=== PATIENT | female | born 1940 | race Hispanic/Latino ===

== ENCOUNTER 2023-01-04 02:50 | Inpatient (IN) | payer MEDICAID, MEDICARE ==
[2023-01-04] MEDS ORDERED: Dextrose 50% Abboject 50 ML SYRINGE ONE (03:01)
[2023-01-04 03:39] LABS: Hemoglobin 8.1 g/dL (12.0-16.0); Mean Corpuscular Hemoglobin 29.6 pg (27.0-31.0); Mean Corpuscular Volume 95.3 fl (78.0-98.0); Mean Platelet Volume 9.2 fL (7.4-10.4); Platelet Count 142 10x3/uL (130-400); RBC Distribution Width 26.1 % (11.5-14.5); Red Blood Cell (RBC) Count 2.74 mill/uL (4.20-5.40); White Blood Cell (WBC) Count 21.1 10x3/uL (4.8-10.8)
[2023-01-04 03:45] LABS: Delete Auto Diff?? YES; Manual Diff?? YES
[2023-01-04 04:21] LABS: ALT (SGPT) 25 U/L (8-55); AST (SGOT) 46 U/L (5-34); Albumin 2.4 g/dL (3.4-4.8); Alkaline Phosphatase 129 U/L (40-110); Anion Gap 21 mmol/L (10-20); BUN (Urea Nitrogen) 36 mg/dL (9.8-20.1); Bilirubin, Total 0.5 mg/dL (0.2-1.2); Calc. Creatinine Clearance 0 mL/min (70-130); Carbon Dioxide 17 mmol/L (23-31); Chloride 97 mmol/L (98-107); Estimated GFR 10; Globulin 2.8 g/dL (2.4-3.5); Glucose 285 mg/dL (83-110); Lipase 7 U/L (8-78); Potassium 4.4 mmol/L (3.5-5.1); Protein, Total 5.2 g/dL (5.8-8.1); Sodium 131 mmol/L (136-145)
[2023-01-04 04:32] LABS: Calcium 6.8 mg/dL (7.8-10.44)
[2023-01-04 04:34] LABS: Anisocytosis MODERATE=16-30 cells HPF (0-5); Band 16 % (5-11); Burr Cells MODERATE= 6-15 cells HPF (0-1); Elliptocytes SLIGHT = 2-5 cells HPF (0-1); Hypochromia SLIGHT = 6-15 cells HPF (0-5); Large Platelets 0.8 % (0-5); Lymphocytes 4 % (21-51); Monocytes 6 % (0-10); Neutrophil 73 % (42-75); Nucleated RBC (Manual Ct) 1 % (0); Ovalocytes SLIGHT = 2-5 cells HPF (0-1); Platelet Adequacy Comment Platelets Normal; Polychromasia MODERATE = 3-4 cells HPF (0-2); Reactive Lymphocytes 1 % (0-10); Smudge Cells 8.1 %; Total Cell Count 123
[2023-01-04] MEDS ORDERED: NOREPINEPHRINE 8 MG/250 ML-D5W 250 ML ONE (05:09)
[2023-01-04] MEDS ORDERED: Vancomycin 1 GM/200 ML (FROZEN) BAG ONE (05:09)
[2023-01-04] MEDS ORDERED: Vancomycin 500 MG VIAL (PEDI) ONE (05:09)
[2023-01-04] MEDS ORDERED: Cefepime 2 GM VIAL ONE (05:09)
[2023-01-04] MEDS ORDERED: Ondansetron PF 4 MG/2 ML Vial IVP PRN (05:32)
[2023-01-04] MEDS ORDERED: Ipratropium/Albuterol 3 ML NEB EZPAP PRN (06:05)
[2023-01-04] MEDS ORDERED: Glucagon 1 MG/ML KIT IM PRN (06:07)
[2023-01-04] MEDS ORDERED: Heparin 10,000 UNITS/ 10 ML VIAL ONE (09:09)
[2023-01-04] MEDS ORDERED: Vancomycin Diaylsis Sliding Scale (Wt 71-99) FS SCH (10:00)
[2023-01-04] MEDS ORDERED: Vancomycin HCl 750 MG in Sodium Chloride 0.9% 250 ML 250 ML IVPB SCH ×2 (10:00→17:00)
[2023-01-04] MEDS: Heparin 5,000 UNITS/ML VIAL SC SCH ×2 (10:08→20:24)
[2023-01-04] MEDS ORDERED: Dextrose 5 % And 0.9 % NaCl 1,000 ML IV SCH (10:45)
[2023-01-04] MEDS: Albumin 25% 25 GM/100 ML BOT IVPB SCH ×2 (10:46→17:03)
[2023-01-04 11:40] LABS: HBSAg Index 0.16 S/CO (0-0.99); Hep B Surf Ag Non-Reactive S/CO (NonReactive); Hep C IgG Ab Non-Reactive S/CO (NonReactive); Hep C Index 0.15 S/CO (0-0.79)
[2023-01-04 11:46] LABS: HBSAB Concentration 47.47 mIU/mL; Hep B Surf AB Reactive (NonReactive)
[2023-01-04 12:53] LABS: Hep B Core Total Ab Reactive (NonReactive)
[2023-01-04 12:54] LABS: Hep B Core Total Index 1.47 S/CO (0-0.79)
[2023-01-04] MEDS ORDERED: NOREPINEPHRINE 8 MG/250 ML-D5W 250 ML IVPB SCH (14:45)
[2023-01-04] MEDS: Midodrine HCl 5 MG TAB PO SCH ×2 (15:13→20:24)
[2023-01-04 19:34] LABS: Anion Gap 17 mmol/L (10-20); BUN (Urea Nitrogen) 11 mg/dL (9.8-20.1); Calc. Creatinine Clearance 27 mL/min (70-130); Calcium 7.9 mg/dL (7.8-10.44); Carbon Dioxide 19 mmol/L (23-31); Chloride 100 mmol/L (98-107); Estimated GFR 29; Glucose 72 mg/dL (83-110); Potassium 4.1 mmol/L (3.5-5.1); Sodium 132 mmol/L (136-145)
[2023-01-04] MEDS ORDERED: Albumin 25% 25 GM/100 ML BOT IVPB SCH (19:45)
[2023-01-04] MEDS: Dextrose 5 % And 0.9 % NaCl 1,000 ML IV SCH (20:54)
[2023-01-05] MEDS: Albumin 25% 25 GM/100 ML BOT IVPB SCH ×3 (00:10→12:57)
[2023-01-05 04:28] LABS: #Monocytes 0.6 thou/uL (0.11-0.59); #Neutrophils 10.2 thou/uL (1.40-6.50); %Basophils 0.1 % (0.0-1.0); %Eosinophils 0.1 % (0.0-10.0); %Lymphocytes 8.8 % (21.0-51.0); %Monocytes 4.9 % (0.0-10.0); %Neutrophils 85.3 % (42.0-75.0); Hemoglobin 7.3 g/dL (12.0-16.0); Mean Corpuscular HGB CONC 30.5 g/dL (32.0-36.0); Mean Corpuscular Hemoglobin 29.2 pg (27.0-31.0); Mean Corpuscular Volume 95.6 fl (78.0-98.0); Mean Platelet Volume 9.6 fL (7.4-10.4); Platelet Count 132 10x3/uL (130-400); RBC Distribution Width 26.2 % (11.5-14.5); White Blood Cell (WBC) Count 11.9 10x3/uL (4.8-10.8)
[2023-01-05 04:33] LABS: Manual Diff?? YES
[2023-01-05 04:58] LABS: Anion Gap 15 mmol/L (10-20); BUN (Urea Nitrogen) 13 mg/dL (9.8-20.1); Calc. Creatinine Clearance 21 mL/min (70-130); Calcium 8.5 mg/dL (7.8-10.44); Carbon Dioxide 25 mmol/L (23-31); Chloride 98 mmol/L (98-107); Estimated GFR 22; Glucose 103 mg/dL (83-110); Potassium 2.9 mmol/L (3.5-5.1); Sodium 135 mmol/L (136-145)
[2023-01-05 05:39] LABS: Anisocytosis MODERATE=16-30 cells HPF (0-5); Band 12 % (5-11); Elliptocytes SLIGHT = 2-5 cells HPF (0-1); Hypochromia SLIGHT = 6-15 cells HPF (0-5); Lymphocytes 5 % (21-51); Monocytes 4 % (0-10); Myelocyte 1 % (0-0); Neutrophil 78 % (42-75); Ovalocytes SLIGHT = 2-5 cells HPF (0-1); Platelet Adequacy Comment Platelets Normal; Polychromasia SLIGHT = 2-3 cells HPF (0-2); Total Cell Count 100
[2023-01-05] MEDS ORDERED: Potassium Chloride 20 MEQ in Premix Bag 1 BAG IVPB SCH (05:45)
[2023-01-05] MEDS: Heparin 5,000 UNITS/ML VIAL SC SCH ×2 (08:56→20:21)
[2023-01-05] MEDS: Midodrine HCl 5 MG TAB PO SCH ×3 (08:56→20:21)
[2023-01-05 13:42] LABS: Anion Gap 13 mmol/L (10-20); BUN (Urea Nitrogen) 17 mg/dL (9.8-20.1); Calc. Creatinine Clearance 18 mL/min (70-130); Calcium 8.2 mg/dL (7.8-10.44); Carbon Dioxide 26 mmol/L (23-31); Chloride 101 mmol/L (98-107); Estimated GFR 19; Glucose 109 mg/dL (83-110); Potassium 3.2 mmol/L (3.5-5.1); Sodium 137 mmol/L (136-145)
[2023-01-05] MEDS: Cefepime 0.5 GM, Admixture Fee 1 EACH in Sodium Chloride 0.9% 100 ML IVPB SCH (16:14)
[2023-01-05] MEDS ORDERED: Ondansetron ODT 4 MG TAB PO PRN (16:17)
[2023-01-05] MEDS: busPIRone HCl 5 MG TAB PO SCH (20:21)
[2023-01-05] MEDS: Sodium Bicarbonate Tab 325 MG TAB PO SCH (20:21)
[2023-01-05] MEDS: Dextrose 5 % And 0.9 % NaCl 1,000 ML IV SCH (20:22)
[2023-01-05] MEDS ORDERED: Famotidine/PF 20 mg/2ml Vial SLOW IVP SCH (21:00)
[2023-01-06] MEDS: Levothyroxine Sodium 25 MCG TAB PO SCH (05:08)
[2023-01-06 07:37] LABS: #Monocytes 0.6 thou/uL (0.11-0.59); %Basophils 0.2 % (0.0-1.0); %Eosinophils 0.4 % (0.0-10.0); %Lymphocytes 10.1 % (21.0-51.0); %Monocytes 5.2 % (0.0-10.0); %Neutrophils 83.3 % (42.0-75.0); Hemoglobin 7.6 g/dL (12.0-16.0); Mean Corpuscular HGB CONC 30.5 g/dL (32.0-36.0); Mean Corpuscular Hemoglobin 29.3 pg (27.0-31.0); Mean Corpuscular Volume 96.1 fl (78.0-98.0); Mean Platelet Volume 10.3 fL (7.4-10.4); Platelet Count 121 10x3/uL (130-400); RBC Distribution Width 26.5 % (11.5-14.5); Red Blood Cell (RBC) Count 2.59 mill/uL (4.20-5.40); White Blood Cell (WBC) Count 10.8 10x3/uL (4.8-10.8)
[2023-01-06 07:48] LABS: Vancomycin, Random 14.9 ug/mL (See Comment)
[2023-01-06 07:56] LABS: Anion Gap 14 mmol/L (10-20); BUN (Urea Nitrogen) 21 mg/dL (9.8-20.1); Calc. Creatinine Clearance 15 mL/min (70-130); Calcium 8.1 mg/dL (7.8-10.44); Carbon Dioxide 25 mmol/L (23-31); Chloride 101 mmol/L (98-107); Estimated GFR 15; Glucose 106 mg/dL (83-110); Potassium 3.1 mmol/L (3.5-5.1); Sodium 137 mmol/L (136-145)
[2023-01-06] MEDS: Heparin 5,000 UNITS/ML VIAL SC SCH ×2 (08:08→21:23)
[2023-01-06] MEDS: Sodium Bicarbonate Tab 325 MG TAB PO SCH ×2 (08:08→21:22)
[2023-01-06] MEDS: Midodrine HCl 5 MG TAB PO SCH ×3 (08:08→21:22)
[2023-01-06] MEDS: Calcitriol 0.25 MCG CAP PO SCH (08:08)
[2023-01-06] MEDS: Aspirin 81 mg Enteric Coated Tablet PO SCH (08:08)
[2023-01-06] MEDS: busPIRone HCl 5 MG TAB PO SCH ×2 (08:08→21:22)
[2023-01-06] MEDS: Allopurinol 300 MG TAB PO SCH (08:08)
[2023-01-06] MEDS ORDERED: Vancomycin Hemodialysis Sliding Scale FS SCH (08:15)
[2023-01-06] MEDS ORDERED: Heparin 10,000 UNITS/ 10 ML VIAL ONE (08:31)
[2023-01-06] MEDS: EPOETIN ALFA-EPBX (ESRD) 2,000 UNITS/ML VIAL SC SCH (09:16)
[2023-01-06] MEDS: Ergocalciferol 1.25 MG(50,000 UNITS) CAP PO SCH (09:16)
[2023-01-06] MEDS: EPOETIN ALFA-EPBX (ESRD) 3,000 UNITS/ML VIAL SC SCH (09:17)
[2023-01-06] MEDS ORDERED: Epoetin (ESRD) 20,000 UNITS/ML MDV IVP SCH (13:27)
[2023-01-06] MEDS ORDERED: Vancomycin HCl 750 MG in Sodium Chloride 0.9% 250 ML 250 ML IVPB SCH (17:00)
[2023-01-06] MEDS: Cefepime 0.5 GM, Admixture Fee 1 EACH in Sodium Chloride 0.9% 100 ML IVPB SCH (21:22)
[2023-01-06] MEDS: Dextrose 5 % And 0.9 % NaCl 1,000 ML IV SCH (21:30)
[2023-01-07] MEDS: Levothyroxine Sodium 25 MCG TAB PO SCH (04:47)
[2023-01-07 08:21] LABS: #Monocytes 0.4 thou/uL (0.11-0.59); #Neutrophils 8.2 thou/uL (1.40-6.50); %Basophils 0.2 % (0.0-1.0); %Eosinophils 0.4 % (0.0-10.0); %Lymphocytes 8.6 % (21.0-51.0); %Monocytes 4.3 % (0.0-10.0); %Neutrophils 85.7 % (42.0-75.0); Hemoglobin 8.5 g/dL (12.0-16.0); Mean Corpuscular HGB CONC 30.5 g/dL (32.0-36.0); Mean Corpuscular Hemoglobin 29.8 pg (27.0-31.0); Mean Corpuscular Volume 97.9 fl (78.0-98.0); Mean Platelet Volume 9.5 fL (7.4-10.4); Platelet Count 129 10x3/uL (130-400); RBC Distribution Width 27.3 % (11.5-14.5); Red Blood Cell (RBC) Count 2.85 mill/uL (4.20-5.40); White Blood Cell (WBC) Count 9.6 10x3/uL (4.8-10.8)
[2023-01-07] MEDS: busPIRone HCl 5 MG TAB PO SCH ×2 (08:31→20:43)
[2023-01-07] MEDS: Aspirin 81 mg Enteric Coated Tablet PO SCH (08:31)
[2023-01-07] MEDS: Midodrine HCl 5 MG TAB PO SCH ×3 (08:31→20:44)
[2023-01-07] MEDS: Heparin 5,000 UNITS/ML VIAL SC SCH ×2 (08:32→20:44)
[2023-01-07] MEDS: Sodium Bicarbonate Tab 325 MG TAB PO SCH ×2 (08:32→20:44)
[2023-01-07] MEDS: Calcitriol 0.25 MCG CAP PO SCH (08:32)
[2023-01-07] MEDS: Allopurinol 300 MG TAB PO SCH (08:32)
[2023-01-07] MEDS: Ergocalciferol 1.25 MG(50,000 UNITS) CAP PO SCH (08:32)
[2023-01-07] MEDS: Benzonatate 100 MG CAP PO PRN (08:32)
[2023-01-07 08:41] LABS: Vancomycin, Random 11.7 ug/mL (See Comment)
[2023-01-07 08:44] LABS: Anion Gap 13 mmol/L (10-20); BUN (Urea Nitrogen) 10 mg/dL (9.8-20.1); Calc. Creatinine Clearance 24 mL/min (70-130); Calcium 8.2 mg/dL (7.8-10.44); Carbon Dioxide 26 mmol/L (23-31); Chloride 101 mmol/L (98-107); Estimated GFR 26; Glucose 109 mg/dL (83-110); Potassium 3.2 mmol/L (3.5-5.1); Sodium 137 mmol/L (136-145)
[2023-01-07 09:14] LABS: Anisocytosis MODERATE=16-30 cells HPF (0-5); Hypochromia MODERATE=16-30 cells HPF (0-5); Macrocytosis MODERATE=16-30 cells HPF (0-5); Platelet Adequacy Comment Platelets Normal; Poikilocytosis SLIGHT = 6-15 cells HPF (0-5); Polychromasia SLIGHT = 2-3 cells HPF (0-2)
[2023-01-07] MEDS: Cefepime 0.5 GM, Admixture Fee 1 EACH in Sodium Chloride 0.9% 100 ML IVPB SCH (15:10)
[2023-01-07] MEDS: Dextrose 5 % And 0.9 % NaCl 1,000 ML IV SCH (20:46)
[2023-01-08] MEDS: Levothyroxine Sodium 25 MCG TAB PO SCH (05:30)
[2023-01-08] MEDS: Midodrine HCl 5 MG TAB PO SCH ×3 (08:46→21:03)
[2023-01-08] MEDS: Ergocalciferol 1.25 MG(50,000 UNITS) CAP PO SCH (08:46)
[2023-01-08] MEDS: busPIRone HCl 5 MG TAB PO SCH ×2 (08:46→21:03)
[2023-01-08] MEDS: Sodium Bicarbonate Tab 325 MG TAB PO SCH ×2 (08:46→21:03)
[2023-01-08] MEDS: Allopurinol 300 MG TAB PO SCH (08:46)
[2023-01-08] MEDS: Aspirin 81 mg Enteric Coated Tablet PO SCH (08:46)
[2023-01-08] MEDS: Heparin 5,000 UNITS/ML VIAL SC SCH ×2 (08:55→21:04)
[2023-01-08 10:38] LABS: ALT (SGPT) 12 U/L (8-55); AST (SGOT) 19 U/L (5-34); Albumin 3.1 g/dL (3.4-4.8); Alkaline Phosphatase 127 U/L (40-110); Anion Gap 15 mmol/L (10-20); BUN (Urea Nitrogen) 18 mg/dL (9.8-20.1); Bilirubin, Total 0.9 mg/dL (0.2-1.2); Calc. Creatinine Clearance 16 mL/min (70-130); Calcium 8.4 mg/dL (7.8-10.44); Carbon Dioxide 26 mmol/L (23-31); Chloride 102 mmol/L (98-107); Estimated GFR 16; Globulin 2.4 g/dL (2.4-3.5); Glucose 120 mg/dL (83-110); Potassium 3.3 mmol/L (3.5-5.1); Protein, Total 5.5 g/dL (5.8-8.1); Sodium 140 mmol/L (136-145)
[2023-01-08] MEDS: Acetaminophen 325 MG TAB PO PRN ×2 (15:40→21:04)
[2023-01-08] MEDS: Benzonatate 100 MG CAP PO PRN (15:40)
[2023-01-08] MEDS: EPOETIN ALFA-EPBX (ESRD) 3,000 UNITS/ML VIAL SC SCH (15:40)
[2023-01-08] MEDS: EPOETIN ALFA-EPBX (ESRD) 2,000 UNITS/ML VIAL SC SCH (15:40)
[2023-01-08] MEDS: Cefepime 0.5 GM, Admixture Fee 1 EACH in Sodium Chloride 0.9% 100 ML IVPB SCH (18:00)
[2023-01-08] MEDS: Dextrose 5 % And 0.9 % NaCl 1,000 ML IV SCH (20:59)
[2023-01-09] MEDS: Levothyroxine Sodium 25 MCG TAB PO SCH (06:05)
[2023-01-09] MEDS: Ergocalciferol 1.25 MG(50,000 UNITS) CAP PO SCH ×2 (08:35→08:36)
[2023-01-09] MEDS: Aspirin 81 mg Enteric Coated Tablet PO SCH (08:36)
[2023-01-09] MEDS: Allopurinol 300 MG TAB PO SCH (08:36)
[2023-01-09] MEDS: Midodrine HCl 5 MG TAB PO SCH (08:36)
[2023-01-09] MEDS: busPIRone HCl 5 MG TAB PO SCH ×2 (08:36→21:21)
[2023-01-09] MEDS: Sodium Bicarbonate Tab 325 MG TAB PO SCH ×2 (08:36→21:21)
[2023-01-09] MEDS: Heparin 5,000 UNITS/ML VIAL SC SCH ×2 (08:38→21:21)
[2023-01-09] MEDS: Cefepime 0.5 GM, Admixture Fee 1 EACH in Sodium Chloride 0.9% 100 ML IVPB SCH (18:27)
[2023-01-09] MEDS: Dextrose 5 % And 0.9 % NaCl 1,000 ML IV SCH (21:20)
[2023-01-10] MEDS: Levothyroxine Sodium 25 MCG TAB PO SCH (05:44)
[2023-01-10] MEDS: Cefepime 0.5 GM, Admixture Fee 1 EACH in Sodium Chloride 0.9% 100 ML IVPB SCH (07:01)
[2023-01-10] MEDS: Aspirin 81 mg Enteric Coated Tablet PO SCH (08:45)
[2023-01-10] MEDS: Sodium Bicarbonate Tab 325 MG TAB PO SCH ×2 (08:45→21:35)
[2023-01-10] MEDS: Heparin 5,000 UNITS/ML VIAL SC SCH ×2 (08:45→21:40)
[2023-01-10] MEDS: Ergocalciferol 1.25 MG(50,000 UNITS) CAP PO SCH ×2 (08:45→08:47)
[2023-01-10] MEDS: busPIRone HCl 5 MG TAB PO SCH ×2 (08:46→21:35)
[2023-01-10] MEDS: Allopurinol 300 MG TAB PO SCH (08:46)
[2023-01-10 20:36] LABS: Hemoglobin 8.8 g/dL (12.0-16.0)
[2023-01-10 20:37] LABS: Platelet Count 108 10x3/uL (130-400)
[2023-01-10] MEDS: Dextrose 5 % And 0.9 % NaCl 1,000 ML IV SCH (21:35)
[2023-01-11] MEDS: Levothyroxine Sodium 25 MCG TAB PO SCH (04:59)
[2023-01-11] MEDS ORDERED: Heparin 10,000 UNITS/ 10 ML VIAL ONE (08:50)
[2023-01-11] MEDS: Heparin 5,000 UNITS/ML VIAL SC SCH (09:00)
[2023-01-11] MEDS: busPIRone HCl 5 MG TAB PO SCH ×2 (14:48→22:38)
[2023-01-11] MEDS: Aspirin 81 mg Enteric Coated Tablet PO SCH (14:48)
[2023-01-11] MEDS: Allopurinol 300 MG TAB PO SCH (14:48)
[2023-01-11] MEDS: Calcitriol 0.25 MCG CAP PO SCH (14:49)
[2023-01-11] MEDS: Sodium Bicarbonate Tab 325 MG TAB PO SCH ×2 (14:49→22:38)
[2023-01-11] MEDS: Ergocalciferol 1.25 MG(50,000 UNITS) CAP PO SCH (14:49)
[2023-01-11] MEDS: EPOETIN ALFA-EPBX (ESRD) 2,000 UNITS/ML VIAL SC SCH (16:34)
[2023-01-11] MEDS: EPOETIN ALFA-EPBX (ESRD) 3,000 UNITS/ML VIAL SC SCH (16:35)
[2023-01-11] MEDS ORDERED: Protamine Sulfate 50 MG/5 ML VIAL SLOW IVP SCH ×2 (17:00→17:15)
[2023-01-11] MEDS ORDERED: niCARdipine 50 MG, Admixture Fee 1 EACH in Sodium Chloride 0.9% 250 ML 230 ML IV SCH (17:30)
[2023-01-11] MEDS ORDERED: niCARdipine 50 MG in Sodium Chloride 0.9% 250 ML 250 ML IVPB SCH (17:30)
[2023-01-11] MEDS ORDERED: Lidocaine 1% (PF) 30 ML VIAL ONE ×2 (17:45→17:54)
[2023-01-11] MEDS ORDERED: Thrombin 5000 UNITS/5 ML VIAL ONE (17:45)
[2023-01-11] MEDS ORDERED: EPINEPHrine 1 MG/ML AMP ONE (17:45)
[2023-01-11] MEDS: Cefepime 0.5 GM, Admixture Fee 1 EACH in Sodium Chloride 0.9% 100 ML IVPB SCH (17:53)
[2023-01-11] MEDS ORDERED: Albumin 5% 500 ML ONE (18:00)
[2023-01-11] MEDS ORDERED: Albumin 25% 100 ML ONE (18:00)
[2023-01-11] MEDS ORDERED: Bacitracin Zinc Ointment 30 gm TUBE ONE (18:01)
[2023-01-11] MEDS ORDERED: Fentanyl 250 MCG/5 ML VIAL ONE (18:01)
[2023-01-11] MEDS ORDERED: dilTIAZem 25 MG/5 ML VIAL ONE (18:18)
[2023-01-11] MEDS ORDERED: Rocuronium Bromide 10 MG/ML (10ML VIAL) ONE (18:26)
[2023-01-11] MEDS ORDERED: Lidocaine 1% PF 5 ML VIAL ONE (18:26)
[2023-01-11] MEDS ORDERED: hydrALAZINE 20 MG/ML VIAL SLOW IVP PRN (19:09)
[2023-01-11] MEDS: Labetalol HCl 100 MG/20 ML VIAL SLOW IVP PRN ×2 (19:41→20:51)
[2023-01-11 19:43] LABS: Actual Bicarbonate (HCO3a) 26.7 mEq/L (22-28); Base Excess (BEa) 3.5 mEq/L (-2.0 to +3.0); CO2 Tension 35.2 mmHg (35.0-45.0); Calcium, Ionized (arterial) 1.07 mmol/L (1.12-1.30); Carboxyhemoglobin (COHb) 0.8 gm% (0.0-3.0); Hematocrit-ABG 29 % (36.0-47.0); O2 Tension (PaO2), arterial 141.2 mmHg (> 60.0); Potassium - ABG Lab 3.53 mmol/L (3.70-5.30); Puncture Site LBA; pH, Arterial 7.498 (7.35-7.45)
[2023-01-11] MEDS: Sodium Chloride 0.9% 1,000 ML IV SCH (19:49)
[2023-01-11 21:31] LABS: Clarity Very Cloudy (Clear); Leukocyte Large (Negative)
[2023-01-11 21:32] LABS: Bilirubin Negative (Negative); Blood, Urine Large (Negative); CAUTI Indications for Culture Alt mental st,lethar; Glucose, Urine (Dipstick) Negative (Negative); Ketone, Urine Negative (Negative); Nitrite Negative (Negative); Protein, Urine (Dipstick) > or equal to 300 mg/dL (Neg-Trace); Urobilinogen 0.2 mg/dL (Less than 2)
[2023-01-11 21:33] LABS: Urine Culture Reflex No No
[2023-01-11 21:36] LABS: Bacteria/HPF 2+ HPF (None Seen); Squamous Epithelial 0-3 HPF (0-3); WBC/HPF Greater than 50 HPF (0-3)
[2023-01-11] MEDS: Morphine 2 MG/ML VIAL SLOW IVP PRN (22:30)
[2023-01-11] MEDS: CEFAZOLIN 1 GM in Sodium Chloride 0.9% 100 ML IVPB SCH (22:38)
[2023-01-12] MEDS ORDERED: Ventilator Sedation Protocol 1 EACH FS SCH (00:15)
[2023-01-12] MEDS ORDERED: Fentanyl BOLUS 250 ML IVPB PRN (00:30)
[2023-01-12] MEDS ORDERED: DISCONTINUE PREVIOUS NARCOTIC PAIN MEDICATIONS AND BENZODIAZEPINES FS SCH (00:30)
[2023-01-12] MEDS ORDERED: Propofol BOLUS 1,000 MG/100 ML VIAL IV PRN (00:30)
[2023-01-12] MEDS ORDERED: Morphine 2 MG/ML VIAL SLOW IVP PRN (00:30)
[2023-01-12] MEDS ORDERED: Propofol 1,000 MG/100 ML VIAL IV PRN (00:30)
[2023-01-12] MEDS ORDERED: Fentanyl CADD 100 ML IV SCH (00:30)
[2023-01-12] MEDS ORDERED: Lorazepam 2 MG/ML VIAL SLOW IVP PRN (00:30)
[2023-01-12 04:45] LABS: Anion Gap 14 mmol/L (10-20); BUN (Urea Nitrogen) 9 mg/dL (9.8-20.1); Calc. Creatinine Clearance 29 mL/min (70-130); Calcium 7.2 mg/dL (7.8-10.44); Carbon Dioxide 24 mmol/L (23-31); Chloride 105 mmol/L (98-107); Estimated GFR 33; Glucose 82 mg/dL (83-110); Potassium 3.8 mmol/L (3.5-5.1); Sodium 139 mmol/L (136-145)
[2023-01-12 04:47] LABS: #Eosinphils 0.1 thou/uL (0.0-0.7); #Monocytes 0.6 thou/uL (0.11-0.59); #Neutrophils 5.3 thou/uL (1.40-6.50); %Basophils 0.1 % (0.0-1.0); %Eosinophils 0.9 % (0.0-10.0); %Lymphocytes 14.6 % (21.0-51.0); %Neutrophils 75.5 % (42.0-75.0); Hemoglobin 7.8 g/dL (12.0-16.0); Mean Corpuscular Hemoglobin 30.6 pg (27.0-31.0); Mean Platelet Volume 10.2 fL (7.4-10.4); Red Blood Cell (RBC) Count 2.55 mill/uL (4.20-5.40)
[2023-01-12 04:52] LABS: Platelet Count 86 10x3/uL (130-400)
[2023-01-12] MEDS: Levothyroxine Sodium 25 MCG TAB PO SCH (06:07)
[2023-01-12 08:20] LABS: Anisocytosis MARKED = >30 cells (100X) (0-5/hpf); Polychromasia SLIGHT = 2-3 cells (100X) (0-2/hpf)
[2023-01-12 08:22] LABS: Ovalocytes SLIGHT = 2-5 cells (100X) (0-1/hpf); Platelet Adequacy Comment Platelets Decreased
[2023-01-12] MEDS: Dextrose 50% Abboject 50 ML SYRINGE SLOW IVP PRN (08:44)
[2023-01-12] MEDS: CEFAZOLIN 1 GM in Sodium Chloride 0.9% 100 ML IVPB SCH (09:01)
[2023-01-12] MEDS: busPIRone HCl 5 MG TAB PO SCH ×2 (09:18→20:24)
[2023-01-12] MEDS: Allopurinol 300 MG TAB PO SCH (09:18)
[2023-01-12] MEDS: Sodium Bicarbonate Tab 325 MG TAB PO SCH ×2 (09:18→20:24)
[2023-01-12] MEDS: Ergocalciferol 1.25 MG(50,000 UNITS) CAP PO SCH (09:19)
[2023-01-12] MEDS: Pantoprazole 40 MG GRANULES PACKET PO SCH (09:55)
[2023-01-12] MEDS: Sodium Chloride 0.9% 1,000 ML IV SCH (11:07)
[2023-01-12] MEDS: Cefepime 0.5 GM, Admixture Fee 1 EACH in Sodium Chloride 0.9% 100 ML IVPB SCH (17:30)
[2023-01-12] MEDS: Morphine 2 MG/ML VIAL SLOW IVP PRN (23:44)
[2023-01-13] MEDS: Dextrose 50% Abboject 50 ML SYRINGE SLOW IVP PRN (05:02)
[2023-01-13] MEDS: Levothyroxine Sodium 25 MCG TAB PO SCH (05:02)
[2023-01-13 07:08] LABS: #Eosinphils 0.1 thou/uL (0.0-0.7); #Monocytes 0.6 thou/uL (0.11-0.59); #Neutrophils 6.3 thou/uL (1.40-6.50); %Basophils 0.5 % (0.0-1.0); %Eosinophils 0.7 % (0.0-10.0); %Lymphocytes 12.5 % (21.0-51.0); %Monocytes 7.8 % (0.0-10.0); %Neutrophils 77.9 % (42.0-75.0); Hemoglobin 8.6 g/dL (12.0-16.0); Mean Corpuscular Hemoglobin 30.2 pg (27.0-31.0); Mean Corpuscular Volume 100.7 fl (78.0-98.0); Mean Platelet Volume 10.2 fL (7.4-10.4); Platelet Count 97 10x3/uL (130-400); RBC Distribution Width 29.2 % (11.5-14.5); Red Blood Cell (RBC) Count 2.85 mill/uL (4.20-5.40); White Blood Cell (WBC) Count 8.1 10x3/uL (4.8-10.8)
[2023-01-13 07:43] LABS: Anion Gap 14 mmol/L (10-20); BUN (Urea Nitrogen) 14 mg/dL (9.8-20.1); Calc. Creatinine Clearance 17 mL/min (70-130); Calcium 8.6 mg/dL (7.8-10.44); Carbon Dioxide 27 mmol/L (23-31); Chloride 102 mmol/L (98-107); Estimated GFR 18; Glucose 98 mg/dL (83-110); Potassium 3.7 mmol/L (3.5-5.1); Sodium 139 mmol/L (136-145)
[2023-01-13] MEDS: EPOETIN ALFA-EPBX (ESRD) 3,000 UNITS/ML VIAL SC SCH (08:48)
[2023-01-13] MEDS: EPOETIN ALFA-EPBX (ESRD) 2,000 UNITS/ML VIAL SC SCH (08:49)
[2023-01-13] MEDS: CEFAZOLIN 1 GM in Sodium Chloride 0.9% 100 ML IVPB SCH (08:50)
[2023-01-13] MEDS: Pantoprazole 40 MG GRANULES PACKET PO SCH (08:50)
[2023-01-13] MEDS: Ergocalciferol 1.25 MG(50,000 UNITS) CAP PO SCH (08:50)
[2023-01-13] MEDS: Sodium Bicarbonate Tab 325 MG TAB PO SCH ×2 (08:51→20:54)
[2023-01-13] MEDS: Allopurinol 300 MG TAB PO SCH (08:51)
[2023-01-13] MEDS: Calcitriol 0.25 MCG CAP PO SCH (08:51)
[2023-01-13] MEDS: busPIRone HCl 5 MG TAB PO SCH ×2 (08:52→20:54)
[2023-01-13 09:24] LABS: Anisocytosis MODERATE=16-30 cells HPF (0-5); Burr Cells SLIGHT = 2-5 cells HPF (0-1); CellaVision Operator ID LAB.GE; Hypochromia SLIGHT = 6-15 cells HPF (0-5); Platelet Adequacy Comment Platelets Decreased; Polychromasia SLIGHT = 2-3 cells HPF (0-2)
[2023-01-13] MEDS: Cefepime 0.5 GM, Admixture Fee 1 EACH in Sodium Chloride 0.9% 100 ML IVPB SCH (22:13)
[2023-01-14 03:11] LABS: #Monocytes 0.5 thou/uL (0.11-0.59); #Neutrophils 5.8 thou/uL (1.40-6.50); %Basophils 0.3 % (0.0-1.0); %Eosinophils 0.1 % (0.0-10.0); %Lymphocytes 10.5 % (21.0-51.0); %Monocytes 6.7 % (0.0-10.0); %Neutrophils 81.7 % (42.0-75.0); Hemoglobin 9.1 g/dL (12.0-16.0); Mean Corpuscular HGB CONC 31.1 g/dL (32.0-36.0); Mean Corpuscular Hemoglobin 30.8 pg (27.0-31.0); Mean Corpuscular Volume 99.3 fl (78.0-98.0); Red Blood Cell (RBC) Count 2.95 mill/uL (4.20-5.40); White Blood Cell (WBC) Count 7.1 10x3/uL (4.8-10.8)
[2023-01-14 03:12] LABS: Platelet Count 85 10x3/uL (130-400)
[2023-01-14 03:39] LABS: Anion Gap 19 mmol/L (10-20); BUN (Urea Nitrogen) 10 mg/dL (9.8-20.1); Calc. Creatinine Clearance 24 mL/min (70-130); Calcium 8.7 mg/dL (7.8-10.44); Carbon Dioxide 21 mmol/L (23-31); Chloride 102 mmol/L (98-107); Estimated GFR 27; Glucose 91 mg/dL (83-110); Magnesium 1.8 mg/dL (1.6-2.6); Potassium 3.8 mmol/L (3.5-5.1); Sodium 138 mmol/L (136-145)
[2023-01-14] MEDS: Levothyroxine Sodium 25 MCG TAB PO SCH (04:56)
[2023-01-14 07:39] LABS: #Monocytes 0.5 thou/uL (0.11-0.59); #Neutrophils 6.2 thou/uL (1.40-6.50); %Basophils 0.1 % (0.0-1.0); %Lymphocytes 13.8 % (21.0-51.0); %Monocytes 6.2 % (0.0-10.0); %Neutrophils 79.4 % (42.0-75.0); Hemoglobin 8.7 g/dL (12.0-16.0); Mean Corpuscular HGB CONC 30.3 g/dL (32.0-36.0); Mean Corpuscular Hemoglobin 30.6 pg (27.0-31.0); Mean Corpuscular Volume 101.1 fl (78.0-98.0); Mean Platelet Volume 10.4 fL (7.4-10.4); Red Blood Cell (RBC) Count 2.84 mill/uL (4.20-5.40); White Blood Cell (WBC) Count 7.8 10x3/uL (4.8-10.8)
[2023-01-14 07:44] LABS: Platelet Count 88 10x3/uL (130-400)
[2023-01-14 08:00] LABS: Lactic Acid 1.3 mmol/L (0.5-2.2)
[2023-01-14] MEDS: Ergocalciferol 1.25 MG(50,000 UNITS) CAP PO SCH (09:14)
[2023-01-14] MEDS: busPIRone HCl 5 MG TAB PO SCH ×2 (09:14→20:27)
[2023-01-14] MEDS: Sodium Bicarbonate Tab 325 MG TAB PO SCH ×2 (09:14→20:27)
[2023-01-14] MEDS: CEFAZOLIN 1 GM in Sodium Chloride 0.9% 100 ML IVPB SCH (09:15)
[2023-01-14] MEDS: Allopurinol 300 MG TAB PO SCH (09:15)
[2023-01-14] MEDS ORDERED: DC Sedation Protocol FS ONE (10:32)
[2023-01-14] MEDS ORDERED: Amlodipine 10 MG TAB PO SCH (12:00)
[2023-01-14] MEDS ORDERED: Metoprolol Tartrate 50 MG TAB PO SCH (12:00)
[2023-01-14] MEDS: Pantoprazole 40 MG GRANULES PACKET PO SCH (12:27)
[2023-01-14] MEDS: Cefepime 0.5 GM, Admixture Fee 1 EACH in Sodium Chloride 0.9% 100 ML IVPB SCH (18:37)
[2023-01-14] MEDS: Metoprolol Tartrate 25 MG TAB PO SCH (20:28)
[2023-01-15 04:25] LABS: Anion Gap 18 mmol/L (10-20); BUN (Urea Nitrogen) 20 mg/dL (9.8-20.1); Calc. Creatinine Clearance 17 mL/min (70-130); Carbon Dioxide 23 mmol/L (23-31); Chloride 101 mmol/L (98-107); Estimated GFR 17; Glucose 82 mg/dL (83-110); Sodium 138 mmol/L (136-145)
[2023-01-15] MEDS: Levothyroxine Sodium 25 MCG TAB PO SCH (04:29)
[2023-01-15] MEDS: CEFAZOLIN 1 GM in Sodium Chloride 0.9% 100 ML IVPB SCH (09:06)
[2023-01-15] MEDS: Allopurinol 300 MG TAB PO SCH (09:06)
[2023-01-15] MEDS: Pantoprazole 40 MG GRANULES PACKET PO SCH (09:06)
[2023-01-15] MEDS: busPIRone HCl 5 MG TAB PO SCH ×2 (09:06→20:18)
[2023-01-15] MEDS: Calcitriol 0.25 MCG CAP PO SCH (09:06)
[2023-01-15] MEDS: Metoprolol Tartrate 25 MG TAB PO SCH ×2 (09:06→20:18)
[2023-01-15] MEDS: Ergocalciferol 1.25 MG(50,000 UNITS) CAP PO SCH (09:06)
[2023-01-15] MEDS: Sodium Bicarbonate Tab 325 MG TAB PO SCH ×2 (09:06→20:18)
[2023-01-15] MEDS: Amlodipine 10 MG TAB PO SCH (09:08)
[2023-01-15] MEDS: EPOETIN ALFA-EPBX (ESRD) 3,000 UNITS/ML VIAL SC SCH (18:12)
[2023-01-15] MEDS: EPOETIN ALFA-EPBX (ESRD) 2,000 UNITS/ML VIAL SC SCH (18:12)
[2023-01-16] MEDS: Dextrose 50% Abboject 50 ML SYRINGE SLOW IVP PRN (04:15)
[2023-01-16] MEDS: Levothyroxine Sodium 25 MCG TAB PO SCH (04:16)
[2023-01-16 04:32] LABS: Anion Gap 19 mmol/L (10-20); BUN (Urea Nitrogen) 12 mg/dL (9.8-20.1); Calc. Creatinine Clearance 23 mL/min (70-130); Calcium 9.1 mg/dL (7.8-10.44); Carbon Dioxide 25 mmol/L (23-31); Chloride 99 mmol/L (98-107); Estimated GFR 27; Glucose 74 mg/dL (83-110); Sodium 139 mmol/L (136-145)
[2023-01-16] MEDS: CEFAZOLIN 1 GM in Sodium Chloride 0.9% 100 ML IVPB SCH (09:46)
[2023-01-16] MEDS: Allopurinol 300 MG TAB PO SCH (09:48)
[2023-01-16] MEDS: Metoprolol Tartrate 25 MG TAB PO SCH ×2 (09:49→21:02)
[2023-01-16] MEDS: Ergocalciferol 1.25 MG(50,000 UNITS) CAP PO SCH (09:49)
[2023-01-16] MEDS: Sodium Bicarbonate Tab 325 MG TAB PO SCH ×2 (09:49→21:02)
[2023-01-16] MEDS: Pantoprazole 40 MG GRANULES PACKET PO SCH (09:49)
[2023-01-16] MEDS: busPIRone HCl 5 MG TAB PO SCH ×2 (09:49→21:02)
[2023-01-16] MEDS: Amlodipine 10 MG TAB PO SCH (09:49)
[2023-01-16] MEDS: Senokot S 8.6-50 MG TAB PO SCH (13:41)
[2023-01-17] MEDS: Acetaminophen 325 MG TAB PO PRN (05:28)
[2023-01-17] MEDS: Levothyroxine Sodium 25 MCG TAB PO SCH (05:28)
[2023-01-17 05:50] LABS: Anion Gap 17 mmol/L (10-20); BUN (Urea Nitrogen) 21 mg/dL (9.8-20.1); Calc. Creatinine Clearance 14 mL/min (70-130); Calcium 9.2 mg/dL (7.8-10.44); Carbon Dioxide 23 mmol/L (23-31); Chloride 101 mmol/L (98-107); Estimated GFR 17; Glucose 94 mg/dL (83-110); Potassium 4.2 mmol/L (3.5-5.1); Sodium 137 mmol/L (136-145)
[2023-01-17] MEDS: CEFAZOLIN 1 GM in Sodium Chloride 0.9% 100 ML IVPB SCH (08:44)
[2023-01-17] MEDS: Polyethylene Glycol 3350 17 GM Packet PO SCH (08:44)
[2023-01-17] MEDS: Senokot S 8.6-50 MG TAB PO SCH ×2 (08:44→20:29)
[2023-01-17] MEDS: Sodium Bicarbonate Tab 325 MG TAB PO SCH ×2 (08:49→20:29)
[2023-01-17] MEDS: Allopurinol 300 MG TAB PO SCH (08:49)
[2023-01-17] MEDS: Metoprolol Tartrate 25 MG TAB PO SCH ×2 (08:50→20:29)
[2023-01-17] MEDS: Amlodipine 10 MG TAB PO SCH (08:50)
[2023-01-17] MEDS: Ergocalciferol 1.25 MG(50,000 UNITS) CAP PO SCH (08:50)
[2023-01-17] MEDS: busPIRone HCl 5 MG TAB PO SCH ×2 (08:50→20:29)
[2023-01-17] MEDS: Pantoprazole 40 MG GRANULES PACKET PO SCH (08:50)
[2023-01-18 05:11] LABS: Anion Gap 22 mmol/L (10-20); BUN (Urea Nitrogen) 33 mg/dL (9.8-20.1); Calc. Creatinine Clearance 14 mL/min (70-130); Calcium 9.3 mg/dL (7.8-10.44); Carbon Dioxide 23 mmol/L (23-31); Chloride 101 mmol/L (98-107); Estimated GFR 12; Glucose 99 mg/dL (83-110); Potassium 4.8 mmol/L (3.5-5.1); Sodium 141 mmol/L (136-145)
[2023-01-18] MEDS: Levothyroxine Sodium 25 MCG TAB PO SCH (06:00)
[2023-01-18] MEDS ORDERED: Heparin 10,000 UNITS/ 10 ML VIAL ONE (09:02)
[2023-01-18] MEDS: Amlodipine 10 MG TAB PO SCH (09:07)
[2023-01-18] MEDS: Polyethylene Glycol 3350 17 GM Packet PO SCH (09:07)
[2023-01-18] MEDS: Metoprolol Tartrate 25 MG TAB PO SCH ×2 (09:07→21:45)
[2023-01-18] MEDS: Ergocalciferol 1.25 MG(50,000 UNITS) CAP PO SCH (09:07)
[2023-01-18] MEDS: CEFAZOLIN 1 GM in Sodium Chloride 0.9% 100 ML IVPB SCH (09:07)
[2023-01-18] MEDS: busPIRone HCl 5 MG TAB PO SCH ×2 (09:07→21:46)
[2023-01-18] MEDS: Calcitriol 0.25 MCG CAP PO SCH (09:07)
[2023-01-18] MEDS: Sodium Bicarbonate Tab 325 MG TAB PO SCH ×2 (09:07→21:46)
[2023-01-18] MEDS: Pantoprazole 40 MG GRANULES PACKET PO SCH (09:07)
[2023-01-18] MEDS: Senokot S 8.6-50 MG TAB PO SCH ×2 (09:08→21:45)
[2023-01-18] MEDS: Allopurinol 300 MG TAB PO SCH (09:08)
[2023-01-18] MEDS: EPOETIN ALFA-EPBX (ESRD) 2,000 UNITS/ML VIAL SC SCH (09:21)
[2023-01-18] MEDS: EPOETIN ALFA-EPBX (ESRD) 3,000 UNITS/ML VIAL SC SCH (09:22)
[2023-01-18] MEDS: Dextrose 5 %-0.45 % NaCl 1,000 ML IV SCH (22:00)
[2023-01-19 05:00] LABS: Anion Gap 13 mmol/L (10-20); BUN (Urea Nitrogen) 16 mg/dL (9.8-20.1); Calc. Creatinine Clearance 22 mL/min (70-130); Calcium 8.2 mg/dL (7.8-10.44); Carbon Dioxide 28 mmol/L (23-31); Chloride 100 mmol/L (98-107); Estimated GFR 22; Glucose 107 mg/dL (83-110); Potassium 3.1 mmol/L (3.5-5.1); Sodium 138 mmol/L (136-145)
[2023-01-19] MEDS: Levothyroxine Sodium 25 MCG TAB PO SCH (05:55)
[2023-01-19] MEDS: Sodium Bicarbonate Tab 325 MG TAB PO SCH ×2 (09:00→20:42)
[2023-01-19] MEDS: Metoprolol Tartrate 25 MG TAB PO SCH ×2 (09:00→20:42)
[2023-01-19] MEDS: Allopurinol 300 MG TAB PO SCH (09:00)
[2023-01-19] MEDS: Ergocalciferol 1.25 MG(50,000 UNITS) CAP PO SCH (09:00)
[2023-01-19] MEDS: Polyethylene Glycol 3350 17 GM Packet PO SCH (09:01)
[2023-01-19] MEDS: busPIRone HCl 5 MG TAB PO SCH ×2 (09:01→20:42)
[2023-01-19] MEDS: Pantoprazole 40 MG GRANULES PACKET PO SCH (09:01)
[2023-01-19] MEDS: Amlodipine 10 MG TAB PO SCH (09:01)
[2023-01-19] MEDS: Senokot S 8.6-50 MG TAB PO SCH ×2 (09:01→20:42)
[2023-01-19] MEDS: CEFAZOLIN 1 GM in Sodium Chloride 0.9% 100 ML IVPB SCH (09:01)
[2023-01-19] MEDS ORDERED: Potassium Chloride 20 MEQ TAB PO SCH (14:30)
[2023-01-19] MEDS: Dextrose 5 %-0.45 % NaCl 1,000 ML IV SCH (17:51)
[2023-01-20 04:57] LABS: Anion Gap 14 mmol/L (10-20); BUN (Urea Nitrogen) 23 mg/dL (9.8-20.1); Calc. Creatinine Clearance 14 mL/min (70-130); Calcium 8.3 mg/dL (7.8-10.44); Carbon Dioxide 26 mmol/L (23-31); Chloride 99 mmol/L (98-107); Estimated GFR 16; Glucose 113 mg/dL (83-110); Potassium 3.2 mmol/L (3.5-5.1); Sodium 136 mmol/L (136-145)
[2023-01-20] MEDS: Levothyroxine Sodium 25 MCG TAB PO SCH (06:05)
[2023-01-20 08:40] VITALS: BMI 22.1
[2023-01-20] MEDS: Metoprolol Tartrate 25 MG TAB PO SCH (09:18)
[2023-01-20] MEDS: Allopurinol 300 MG TAB PO SCH (09:18)
[2023-01-20] MEDS: Polyethylene Glycol 3350 17 GM Packet PO SCH (09:19)
[2023-01-20] MEDS: Ergocalciferol 1.25 MG(50,000 UNITS) CAP PO SCH (09:19)
[2023-01-20] MEDS: Senokot S 8.6-50 MG TAB PO SCH ×2 (09:19→20:27)
[2023-01-20] MEDS: Calcitriol 0.25 MCG CAP PO SCH (09:19)
[2023-01-20] MEDS: Pantoprazole 40 MG GRANULES PACKET PO SCH (09:19)
[2023-01-20] MEDS: busPIRone HCl 5 MG TAB PO SCH ×2 (09:19→20:27)
[2023-01-20] MEDS: Sodium Bicarbonate Tab 325 MG TAB PO SCH ×2 (09:19→20:27)
[2023-01-20] MEDS: Amlodipine 10 MG TAB PO SCH (09:19)
[2023-01-20] MEDS: EPOETIN ALFA-EPBX (ESRD) 3,000 UNITS/ML VIAL SC SCH (09:21)
[2023-01-20] MEDS: CEFAZOLIN 1 GM in Sodium Chloride 0.9% 100 ML IVPB SCH (09:29)
[2023-01-20] MEDS: EPOETIN ALFA-EPBX (ESRD) 2,000 UNITS/ML VIAL SC SCH (09:37)
[2023-01-20] MEDS: Dextrose 5 %-0.45 % NaCl 1,000 ML IV SCH (15:46)
[2023-01-20] MEDS ORDERED: Acetaminophen/Codeine 30-300mg Tablet PO PRN (20:13)
[2023-01-21] MEDS: Metoprolol Tartrate 25 MG TAB PO SCH ×2 (00:38→08:44)
[2023-01-21 04:34] LABS: Carbon Dioxide 25 mmol/L (23-31); Chloride 100 mmol/L (98-107); Potassium 3.5 mmol/L (3.5-5.1); Sodium 137 mmol/L (136-145)
[2023-01-21 04:35] LABS: Anion Gap 16 mmol/L (10-20); BUN (Urea Nitrogen) 11 mg/dL (9.8-20.1); Calc. Creatinine Clearance 24 mL/min (70-130); Calcium 8.2 mg/dL (7.8-10.44); Estimated GFR 32; Glucose 84 mg/dL (83-110)
[2023-01-21] MEDS: Levothyroxine Sodium 25 MCG TAB PO SCH (05:23)
[2023-01-21] MEDS: Amlodipine 10 MG TAB PO SCH (08:40)
[2023-01-21] MEDS: busPIRone HCl 5 MG TAB PO SCH (08:40)
[2023-01-21] MEDS: Allopurinol 300 MG TAB PO SCH (08:40)
[2023-01-21] MEDS: Ergocalciferol 1.25 MG(50,000 UNITS) CAP PO SCH (08:41)
[2023-01-21] MEDS: Sodium Bicarbonate Tab 325 MG TAB PO SCH (08:41)
[2023-01-21] MEDS: Polyethylene Glycol 3350 17 GM Packet PO SCH (08:42)
[2023-01-21] MEDS: Senokot S 8.6-50 MG TAB PO SCH (08:42)
[2023-01-21] MEDS ORDERED: Lansoprazole 15 MG/5 ML (BATCHED)UDCUP PO SCH (09:00)
[2023-01-21 11:23] VITALS: BP 110/61
[2023-01-21 17:16] VITALS: TEMP 97.5
== END 2023-01-21 18:09 | disposition home health service (06) | DRG 853 ==
LOC: ERS 02:50 → ERHOLD 05:21 → CCU 09:32 → T4-A 01-05 17:50 → CCU 01-11 17:00 → SURG A 01-13 13:40 → IMCU/EMU 01-14 04:14
PROVIDERS: ADMIT Internal Medicine; ATTEND Internal Medicine
PROC: 3E03329 Introduction of Other Anti-infective into Peripheral Vein, Percutaneous Approach (ICD-10-PCS; 2023-01-04)
PROC: 3E033XZ Introduction of Vasopressor into Peripheral Vein, Percutaneous Approach (ICD-10-PCS; 2023-01-04)
PROC: 5A1D70Z Performance of Urinary Filtration, Intermittent, Less than 6 Hours Per Day (ICD-10-PCS; 2023-01-04)
PROC: 00C43ZZ Extirpation of Matter from Intracranial Subdural Space, Percutaneous Approach (ICD-10-PCS; principal; 2023-01-11)
PROC: 30233N1 Transfusion of Nonautologous Red Blood Cells into Peripheral Vein, Percutaneous Approach (ICD-10-PCS; 2023-01-11)
PROC: 4A033R1 Measurement of Arterial Saturation, Peripheral, Percutaneous Approach (ICD-10-PCS; 2023-01-11)
PROC: 6A550Z2 Pheresis of Platelets, Single (ICD-10-PCS; 2023-01-11)
DX: A41.9 Sepsis, unspecified organism (principal); I62.03 Nontraumatic chronic subdural hemorrhage; J18.9 Pneumonia, unspecified organism; J96.01 Acute respiratory failure with hypoxia; R65.21 Severe sepsis with septic shock; N18.6 End stage renal disease; I50.30 Unspecified diastolic (congestive) heart failure; I12.0 Hypertensive chronic kidney disease with stage 5 chronic kidney disease or end stage renal disease; D62 Acute posthemorrhagic anemia; I50.810 Right heart failure, unspecified; I27.20 Pulmonary hypertension, unspecified; I08.2 Rheumatic disorders of both aortic and tricuspid valves; E87.70 Fluid overload, unspecified; E87.6 Hypokalemia; E11.649 Type 2 diabetes mellitus with hypoglycemia without coma; D63.1 Anemia in chronic kidney disease; D69.6 Thrombocytopenia, unspecified; I48.91 Unspecified atrial fibrillation; E11.22 Type 2 diabetes mellitus with diabetic chronic kidney disease; E83.42 Hypomagnesemia; F41.9 Anxiety disorder, unspecified; Z79.899 Other long term (current) drug therapy; Z91.158 Patient's noncompliance with renal dialysis for other reason; Z79.82 Long term (current) use of aspirin; Z79.890 Hormone replacement therapy; Z90.49 Acquired absence of other specified parts of digestive tract; Z87.891 Personal history of nicotine dependence
CPT/HCPCS: 36415; 36416; 36430; 36600; 70450; 71045; 80048; 80053; 80202; 81001; 82140; 82805; 83605; 83690; 83735; 83880; 84145; 84443; 85014; 85018; 85025; 85049; 86704; 86850; 86900; 86901; 87040; 87070; 87077; 87081; 87186; 87205; 90935; 93005; 93010; 93306; 94002; 94003; 94640; 96365; 96367; 96374; 96375; C1713; G0257; J0171; J0690; J0692; J1642; J1644; J2001; J2272; J2720; J3010; J3370; J3370-JW; J3371; J3480; J3490; J7042; J7050; J7620; J7999; P9035; P9045; P9047; Q5105

== ENCOUNTER 2023-01-23 11:34 | Inpatient (IN) | payer MEDICARE ==
[2023-01-23] MEDS ORDERED: Cefepime 2 GM VIAL ONE (12:25)
[2023-01-23] MEDS ORDERED: Aspirin Chewable 81 MG TAB ONE (12:25)
[2023-01-23 12:32] LABS: Bilirubin Negative (Negative); Blood, Urine Large (Negative); Glucose, Urine (Dipstick) Negative (Negative); Ketone, Urine Trace mg/dL (Negative); Leukocyte Large (Negative); Nitrite Negative (Negative); Protein, Urine (Dipstick) > or equal to 300 mg/dL (Neg-Trace); Specific Gravity, Urine 1.015 (1.005-1.030); Urobilinogen 0.2 mg/dL (Less than 2)
[2023-01-23 12:32] LABS: Hemoglobin 8.3 g/dL (12.0-16.0); Mean Corpuscular HGB CONC 29.7 g/dL (32.0-36.0); Mean Corpuscular Hemoglobin 31.3 pg (27.0-31.0); Mean Corpuscular Volume 105.3 fl (78.0-98.0); Mean Platelet Volume 10.9 fL (7.4-10.4); RBC Distribution Width 29.4 % (11.5-14.5); Red Blood Cell (RBC) Count 2.65 mill/uL (4.20-5.40); White Blood Cell (WBC) Count 6.7 10x3/uL (4.8-10.8)
[2023-01-23 12:33] LABS: Clarity Clear (Clear)
[2023-01-23 12:34] LABS: Delete Auto Diff?? YES; Manual Diff?? YES; Platelet Count 55 10x3/uL (130-400)
[2023-01-23 12:41] LABS: CAUTI Indications for Culture Alt mental st,lethar; WBC/HPF 21-50 HPF (0-3)
[2023-01-23 12:42] LABS: Bacteria/HPF 3+ HPF (None Seen)
[2023-01-23 12:43] LABS: Urine Culture Reflex Yes Yes
[2023-01-23 12:53] LABS: Anisocytosis MODERATE=16-30 cells HPF (0-5); Band 16 % (5-11); Burr Cells SLIGHT = 2-5 cells HPF (0-1); CellaVision Operator ID LAB.KB; Eosinophils 1 % (0-10); Hypochromia SLIGHT = 6-15 cells HPF (0-5); Lymphocytes 6 % (21-51); Macrocytosis SLIGHT = 6-15 cells HPF (0-5); Monocytes 6 % (0-10); Neutrophil 71 % (42-75); Ovalocytes SLIGHT = 2-5 cells HPF (0-1); Platelet Adequacy Comment Platelets Decreased; Poikilocytosis SLIGHT = 6-15 cells HPF (0-5); Polychromasia SLIGHT = 2-3 cells HPF (0-2); Smudge Cells 43.6 %; Total Cell Count 101
[2023-01-23 13:03] LABS: ALT (SGPT) Less than 7 U/L (8-55); AST (SGOT) 29 U/L (5-34); Albumin 3.2 g/dL (3.4-4.8); Alkaline Phosphatase 142 U/L (40-110); Anion Gap 15 mmol/L (10-20); BUN (Urea Nitrogen) 12 mg/dL (9.8-20.1); Bilirubin, Total 1.3 mg/dL (0.2-1.2); Calc. Creatinine Clearance 0 mL/min (70-130); Calcium 8.4 mg/dL (7.8-10.44); Carbon Dioxide 29 mmol/L (23-31); Chloride 100 mmol/L (98-107); Estimated GFR 24; Globulin 2.8 g/dL (2.4-3.5); Glucose 79 mg/dL (83-110); Potassium 3.7 mmol/L (3.5-5.1); Sodium 140 mmol/L (136-145)
[2023-01-23 13:28] LABS: CKMB 3.3 ng/mL (0-6.6)
[2023-01-23] MEDS ORDERED: Furosemide 40 MG/4 ML VIAL ONE (15:20)
[2023-01-23] MEDS ORDERED: Senokot S 8.6-50 MG TAB PO PRN (19:16)
[2023-01-23] MEDS ORDERED: Ondansetron PF 4 MG/2 ML Vial IVP PRN (19:16)
[2023-01-23] MEDS ORDERED: Ondansetron ODT 4 MG TAB PO PRN (19:16)
[2023-01-23] MEDS ORDERED: Acetaminophen 325 MG TAB PO PRN (19:16)
[2023-01-23] MEDS ORDERED: Calcium Carbonate 500 MG ChewTAB PO PRN (19:16)
[2023-01-23] MEDS ORDERED: Benzonatate 100 MG CAP PO PRN (19:32)
[2023-01-24 00:45] LABS: Critical Call Chem Troponin I RESULT DECREASING; Troponin I 0.299 ng/mL (< 0.028)
[2023-01-24] MEDS: busPIRone HCl 5 MG TAB PO SCH ×3 (00:53→21:13)
[2023-01-24] MEDS: Sodium Bicarbonate Tab 325 MG TAB PO SCH ×3 (00:53→21:13)
[2023-01-24] MEDS: Famotidine/PF 20 mg/2ml Vial SLOW IVP SCH ×3 (00:53→21:13)
[2023-01-24] MEDS: Famotidine 20 MG TAB PO SCH ×3 (00:54→21:14)
[2023-01-24 05:13] LABS: Hemoglobin 9.8 g/dL (12.0-16.0); Mean Corpuscular HGB CONC 30.4 g/dL (32.0-36.0); Mean Corpuscular Hemoglobin 31.2 pg (27.0-31.0); Mean Corpuscular Volume 102.5 fl (78.0-98.0); RBC Distribution Width 29.3 % (11.5-14.5); Red Blood Cell (RBC) Count 3.14 mill/uL (4.20-5.40)
[2023-01-24 05:41] LABS: Anion Gap 16 mmol/L (10-20); BUN (Urea Nitrogen) 8 mg/dL (9.8-20.1); Calc. Creatinine Clearance 30 mL/min (70-130); Calcium 8.3 mg/dL (7.8-10.44); Carbon Dioxide 23 mmol/L (23-31); Chloride 102 mmol/L (98-107); Estimated GFR 42; Glucose 74 mg/dL (83-110); Sodium 137 mmol/L (136-145)
[2023-01-24 05:50] LABS: Critical Call Chem Troponin I RESULT DECREASING
[2023-01-24 05:57] LABS: Manual Diff?? YES; Platelet Count 51 10x3/uL (130-400)
[2023-01-24 05:58] LABS: Delete Auto Diff?? YES
[2023-01-24] MEDS: Levothyroxine Sodium 25 MCG TAB PO SCH (06:13)
[2023-01-24 06:55] LABS: Anisocytosis SLIGHT = 6-15 cells HPF (0-5); Band 42 % (5-11); CellaVision Operator ID LAB.CLH1; Eosinophils 2 % (0-10); Hypochromia SLIGHT = 6-15 cells HPF (0-5); Lymphocytes 4 % (21-51); Macrocytosis SLIGHT = 6-15 cells HPF (0-5); Monocytes 4 % (0-10); Neutrophil 49 % (42-75); Nucleated RBC (Manual Ct) 2 % (0); Platelet Adequacy Comment Platelets Decreased; Poikilocytosis SLIGHT = 6-15 cells HPF (0-5); Polychromasia SLIGHT = 2-3 cells HPF (0-2); Target Cells SLIGHT = 2-5 cells HPF (0-1); Total Cell Count 101
[2023-01-24] MEDS ORDERED: Ergocalciferol 1.25 MG(50,000 UNITS) CAP PO SCH (09:00)
[2023-01-24] MEDS ORDERED: Ipratropium/Albuterol 3 ML NEB NEB PRN (10:08)
[2023-01-24] MEDS: Amlodipine 10 MG TAB PO SCH (10:15)
[2023-01-24] MEDS ORDERED: Furosemide 40 MG/4 ML VIAL SLOW IVP SCH (10:15)
[2023-01-24] MEDS: Allopurinol 300 MG TAB PO SCH (10:15)
[2023-01-25] MEDS: Levothyroxine Sodium 25 MCG TAB PO SCH (06:29)
[2023-01-25] MEDS: Amlodipine 10 MG TAB PO SCH (09:00)
[2023-01-25] MEDS ORDERED: Calcitriol 0.25 MCG CAP PO SCH (09:00)
[2023-01-25] MEDS: busPIRone HCl 5 MG TAB PO SCH (09:00)
[2023-01-25 09:50] LABS: Hemoglobin 9.3 g/dL (12.0-16.0); Mean Corpuscular HGB CONC 30.4 g/dL (32.0-36.0); Mean Corpuscular Volume 105.2 fl (78.0-98.0); Mean Platelet Volume 10.7 fL (7.4-10.4); RBC Distribution Width 29.5 % (11.5-14.5); Red Blood Cell (RBC) Count 2.91 mill/uL (4.20-5.40); White Blood Cell (WBC) Count 9.3 10x3/uL (4.8-10.8)
[2023-01-25 09:51] LABS: Delete Auto Diff?? YES; Manual Diff?? YES; Platelet Count 56 10x3/uL (130-400)
[2023-01-25 10:27] LABS: Anion Gap 17 mmol/L (10-20); BUN (Urea Nitrogen) 23 mg/dL (9.8-20.1); Calc. Creatinine Clearance 15 mL/min (70-130); Calcium 8.4 mg/dL (7.8-10.44); Carbon Dioxide 26 mmol/L (23-31); Chloride 101 mmol/L (98-107); Estimated GFR 19; Glucose 109 mg/dL (83-110); Potassium 3.9 mmol/L (3.5-5.1); Sodium 140 mmol/L (136-145)
[2023-01-25 10:48] LABS: Troponin I 0.308 ng/mL (< 0.028)
[2023-01-25 11:00] LABS: Anisocytosis SLIGHT = 6-15 cells HPF (0-5); Band 28 % (5-11); Basophilic Stippling SLIGHT = 1-2 cells HPF (None Seen); Burr Cells SLIGHT = 2-5 cells HPF (0-1); CellaVision Operator ID LAB.GE; Lymphocytes 3 % (21-51); Macrocytosis SLIGHT = 6-15 cells HPF (0-5); Metamyelocyte 1 % (0-0); Neutrophil 68 % (42-75); Nucleated RBC (Manual Ct) 3 % (0); Platelet Adequacy Comment Platelets Decreased; Polychromasia MODERATE = 3-4 cells HPF (0-2); Total Cell Count 99
[2023-01-25] MEDS: Famotidine/PF 20 mg/2ml Vial SLOW IVP SCH (11:38)
[2023-01-25 12:40] VITALS: BMI 22.4
[2023-01-25] MEDS ORDERED: cefTRIAXone\\ROCEPHIN 1 GM in Sodium Chloride 0.9% 100 ML IVPB SCH (15:00)
[2023-01-25 16:31] VITALS: BP 141/67
[2023-01-25] MEDS: Sodium Bicarbonate Tab 325 MG TAB PO SCH (16:48)
[2023-01-25] MEDS: Allopurinol 300 MG TAB PO SCH (18:23)
[2023-01-25] MEDS: Famotidine 20 MG TAB PO SCH (18:23)
[2023-01-25] MEDS ORDERED: Allopurinol 300 MG TAB PO SCH (21:00)
[2023-01-25 21:46] LABS: Lactic Acid 1.6 mmol/L (0.5-2.2)
[2023-01-26] MEDS: Sodium Bicarbonate Tab 325 MG TAB PO SCH ×2 (02:19→09:58)
[2023-01-26] MEDS: busPIRone HCl 5 MG TAB PO SCH ×2 (02:19→09:57)
[2023-01-26 04:39] LABS: Hemoglobin 9.4 g/dL (12.0-16.0); Mean Corpuscular HGB CONC 30.1 g/dL (32.0-36.0); Mean Corpuscular Volume 106.1 fl (78.0-98.0); RBC Distribution Width 29.6 % (11.5-14.5); Red Blood Cell (RBC) Count 2.94 mill/uL (4.20-5.40); White Blood Cell (WBC) Count 11.5 10x3/uL (4.8-10.8)
[2023-01-26 04:57] LABS: Manual Diff?? YES; Platelet Count 47 10x3/uL (130-400)
[2023-01-26 04:58] LABS: Delete Auto Diff?? YES
[2023-01-26 05:39] VITALS: TEMP 97.5
[2023-01-26 06:15] LABS: Anion Gap 17 mmol/L (10-20); BUN (Urea Nitrogen) 19 mg/dL (9.8-20.1); Calc. Creatinine Clearance 19 mL/min (70-130); Calcium 8.4 mg/dL (7.8-10.44); Carbon Dioxide 26 mmol/L (23-31); Chloride 102 mmol/L (98-107); Estimated GFR 25; Glucose 98 mg/dL (83-110); Potassium 3.7 mmol/L (3.5-5.1); Sodium 141 mmol/L (136-145)
[2023-01-26 06:15] LABS: Anisocytosis MODERATE=16-30 cells HPF (0-5); Band 11 % (5-11); Burr Cells SLIGHT = 2-5 cells HPF (0-1); CellaVision Operator ID LAB.JMM; Lymphocytes 1 % (21-51); Macrocytosis SLIGHT = 6-15 cells HPF (0-5); Neutrophil 88 % (42-75); Nucleated RBC (Manual Ct) 3 % (0); Platelet Adequacy Comment Platelets Decreased; Poikilocytosis SLIGHT = 6-15 cells HPF (0-5); Polychromasia MODERATE = 3-4 cells HPF (0-2); Total Cell Count 98
[2023-01-26] MEDS: Levothyroxine Sodium 25 MCG TAB PO SCH (06:40)
[2023-01-26] MEDS ORDERED: Vancomycin 1 GM in Premix Bag 1 BAG IVPB SCH ×2 (07:30→08:00)
[2023-01-26] MEDS ORDERED: Vancomycin Dose by Levels Sliding Scale (Wt <71) FS SCH (07:45)
[2023-01-26] MEDS ORDERED: Morphine 2 MG/ML VIAL SLOW IVP PRN (08:37)
[2023-01-26] MEDS ORDERED: Lorazepam 2 MG/ML VIAL SLOW IVP PRN (08:37)
[2023-01-26] MEDS ORDERED: Famotidine/PF 20 mg/2ml Vial SLOW IVP SCH (09:00)
[2023-01-26] MEDS ORDERED: Famotidine 20 MG TAB PO SCH (09:00)
[2023-01-26] MEDS: Amlodipine 10 MG TAB PO SCH (09:57)
[2023-01-26] MEDS ORDERED: Meropenem 1 GM in Sodium Chloride 0.9% 100 ML IVPB SCH (12:00)
[2023-01-26] MEDS ORDERED: Meropenem 500 MG in Sodium Chloride 0.9% 100 ML IVPB SCH ×2 (14:00→20:00)
[2023-01-26] MEDS ORDERED: Linezolid 600 MG in Premix Bag 1 BAG IVPB SCH (21:00)
[2023-01-27] MEDS ORDERED: Meropenem 500 MG in Sodium Chloride 0.9% 100 ML IVPB SCH (12:00)
== END 2023-01-26 18:26 | disposition hospice, home (50) | DRG 280 ==
LOC: ERS 11:34 → 2NO 18:55 → OBSVTOIN 01-25 16:20 → IMCU/EMU 01-25 18:50
PROVIDERS: ADMIT Internal Medicine; ATTEND Hospitalist
PROC: 5A1D70Z Performance of Urinary Filtration, Intermittent, Less than 6 Hours Per Day (ICD-10-PCS; 2023-01-23)
PROC: 5A1D70Z Performance of Urinary Filtration, Intermittent, Less than 6 Hours Per Day (ICD-10-PCS; principal; 2023-01-25)
DX: I13.2 Hypertensive heart and chronic kidney disease with heart failure and with stage 5 chronic kidney disease, or end stage renal disease (principal); I21.A1 Myocardial infarction type 2; G93.41 Metabolic encephalopathy; N18.6 End stage renal disease; J18.9 Pneumonia, unspecified organism; J96.01 Acute respiratory failure with hypoxia; I50.33 Acute on chronic diastolic (congestive) heart failure; I62.00 Nontraumatic subdural hemorrhage, unspecified; N39.0 Urinary tract infection, site not specified; N25.81 Secondary hyperparathyroidism of renal origin; Z66 Do not resuscitate; Z51.5 Encounter for palliative care; E11.22 Type 2 diabetes mellitus with diabetic chronic kidney disease; F41.9 Anxiety disorder, unspecified; I48.91 Unspecified atrial fibrillation; D63.1 Anemia in chronic kidney disease; Z99.2 Dependence on renal dialysis; Z90.49 Acquired absence of other specified parts of digestive tract; Z98.890 Other specified postprocedural states; Z87.891 Personal history of nicotine dependence
CPT/HCPCS: 36415; 36416; 51701; 70450; 71045; 80048; 80053; 81001; 82553; 83605; 83735; 83880; 84484; 85025; 87040; 87077; 87086; 87186; 90935; 93005; 93010; 93923; 94760; 96365; 96375; 96376; G0257; G0378; J0692; J0696; J1940; J2185; J3370-JW; J3490; S0028